=== PATIENT | female | born 1960 | race Caucasian/White ===

== ENCOUNTER → 2019-04-28 | Outpatient (CLI) | payer OTHER ==
--- NOTE | 2019-04-28 14:57 | RAD ---
EXAM: MRI LEFT KNEE DATE: 04/28/2019 1:00 PM CLINICAL INDICATION: Left knee pain COMPARISON: None. TECHNIQUE: Multiplanar, multisequence MRI of the left knee was performed without contrast. FINDINGS: Small left knee joint effusion. Small Thompson's cyst. ACL and PCL are intact. MCL, fibular collateral ligament, biceps femoris and IT band are intact. Popliteus is normal in signal and morphology, intact. Lateral patellar tracking. Extensor mechanism is intact. Medial meniscus: Intact Lateral meniscus: Intact Full-thickness cartilage defect is seen at the lateral patellar facet measuring approximately 1 cm in craniocaudal dimension and 5 mm in transverse dimension with moderate subchondral edema and subtle cystic change. Chondral thinning at the patellar facet as well as the lateral femoral condyle weightbearing surface. No evidence for fracture or osteonecrosis. IMPRESSION: 1. Left knee joint degenerative change, most prominent in the patella femoral compartment. Full-thickness defect at the lateral patellar facet measuring 1 cm in craniocaudal dimension with subchondral edema and subtle cystic change.. 2. Small left knee joint effusion. 3. Small Thompson's cyst. Electronically signed by: Ronald Barrett MD (04/28/2019 2:54 PM) [id number]
== END | disposition home or self-care (01) ==
LOC: MRI 12:27
PROVIDERS: ATTEND Orthopaedic Surgery
DX: M17.12 Unilateral primary osteoarthritis, left knee (principal); M25.462 Effusion, left knee; M71.22 Synovial cyst of popliteal space [Baker], left knee
CPT/HCPCS: 73721

== ENCOUNTER → 2019-10-09 | Outpatient (CLI) | payer OTHER ==
--- NOTE | 2019-10-09 16:26 | KCIC ---
Study: MRI left ankle without contrast INDICATION: Achilles tendinosis. COMPARISON: None. TECHNIQUE: Multiplanar MR imaging of the left ankle performed without the use of intravenous or intra-articular contrast. FINDINGS: Bones/cartilage: Marrow edema at the dorsal/medial calcaneus. No calcaneal fracture. Achilles insertion enthesophyte formation. Chondrosis at the medial aspect of ankle joint with subchondral edema/cystic change at the medial talar dome. Ligaments: Intact distal syndesmotic ligaments. Thickened but intact ATFL typical of prior injury. The CFL and PTFL are intact. No acute injury of the superficial or deep deltoid ligament structures. The spring ligament is intact. The partially assessed Lisfranc ligament complex is grossly intact. Musculotendinous: Mild thickening of the peroneus longus at the distal fibula compatible with mild tendinosis. The flexor tendons are intact at the ankle mild PTT tenosynovitis approaching its navicular insertion, image 19 series 5. Mid to distal Achilles tendinosis but becoming most pronounced approximately 2 cm above the calcaneal insertion. The tendon measures up to 0.9 cm in AP dimension at this location. Sinus Tarsi: Normal signal. Tarsal tunnel: No space-occupying mass or accessory muscle. Plantar fascia: Faint edema-like signal adjacent to the plantar fascia origin but fascial thickness and internal signal is relatively normal. Miscellaneous: Retrocalcaneal bursitis. Edema of Kager's fat. No large joint effusion. IMPRESSION: 1. 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 Associated retrocalcaneal bursitis, calcaneal marrow edema in the region of the Achilles insertion and Kager's fat pad edema. 2. Trace soft tissue edema adjacent to the plantar fascia origin. The plantar fascia itself is relatively normal in signal and morphology but recommend correlation for any symptoms of plantar fasciitis. 3. Mild peroneus longus tendinosis at the distal lateral malleolus. Mild PTT tenosynovitis nearing its navicular insertion. The flexor, extensor and peroneal tendons remain intact and normally located. 4. Chondral loss at the medial aspect of ankle joint with subchondral edema/cystic change at the medial talar dome. Electronically signed by: SHIRLEY MEYERS MD (10/09/2019 4:24 PM) [id number]
== END ==
LOC: KCIC MRI 13:53
PROVIDERS: ATTEND Physician Assistant
DX: M65.872 Other synovitis and tenosynovitis, left ankle and foot (principal); M25.472 Effusion, left ankle
CPT/HCPCS: 73721